=== PATIENT | female | born 1985 | race Caucasian/White ===

== ENCOUNTER 2019-07-26 06:44 | Inpatient (IN) | payer MEDICAID, SELFPAY ==
[2019-07-26] MEDS ORDERED: Ondansetron PF 4 MG/2 ML Vial ONE ×2 (06:51→07:43)
[2019-07-26 07:27] LABS: BHCG - Serum Negative (NEGATIVE); Pregs Control Background? CLEAR/WHITE (CLR/WHITE); Pregs Control Bar Appear? YES (CONTROL BAR)
[2019-07-26 07:36] LABS: #Basophils 0.1 thou/uL (0.0-0.2); #Lymphocytes 0.8 thou/uL (1.20-3.40); #Monocytes 0.5 thou/uL (0.11-0.59); #Neutrophils 4.6 thou/uL (1.40-6.50); %Eosinophils 0.1 % (0.0-10.0); %Lymphocytes 13.2 % (21.0-51.0); %Monocytes 8.3 % (0.0-10.0); %Neutrophils 77.4 % (42.0-75.0); Anisocytosis SLIGHT = 6-15 cells (100X) (0-5/hpf); Hemoglobin 13.8 g/dL (12.0-16.0); MDiff Complete? YES; Macrocytosis SLIGHT = 6-15 cells (100X) (0-5/hpf); Mean Corpuscular HGB CONC 34.4 g/dL (32.0-36.0); Mean Corpuscular Hemoglobin 35.9 pg (27.0-31.0); Mean Platelet Volume 7.7 fL (7.4-10.4); Platelet Count 141 thou/uL (130-400); Platelet Morphology Comment Appears Adequate; RBC Distribution Width 12.1 % (11.5-14.5); Red Blood Cell (RBC) Count 3.84 mill/uL (4.20-5.40); White Blood Cell (WBC) Count 5.9 thou/uL (4.8-10.8)
[2019-07-26 07:38] LABS: ALT (SGPT) 101 U/L (8-55); AST (SGOT) 253 U/L (5-34); Acetaminophen Less than 6.0 mcg/mL (10.0-30.0); Albumin 3.9 g/dL (3.5-5.0); Alcohol Less than 10 mg/dL (Less than 10); Alkaline Phosphatase 140 U/L (40-110); Anion Gap 28 mmol/L (10-20); BUN (Urea Nitrogen) 5 mg/dL (7.0-18.7); Bilirubin, Total 2.3 mg/dL (0.2-1.2); CK (CPK) 79 U/L (29-168); Calc. Creatinine Clearance 0 mL/min (70-130); Calcium 8.4 mg/dL (7.8-10.44); Carbon Dioxide 17 mmol/L (22-29); Chloride 97 mmol/L (98-107); Estimated GFR-MDRD 88; Globulin 4.6 g/dL (2.4-3.5); Glucose 95 mg/dL (70-105); Lipase 30 U/L (8-78); Potassium 3.2 mmol/L (3.5-5.1); Protein, Total 8.5 g/dL (6.0-8.3); Salicylate Less than 8.0 mg/dL (15.0-30.0); Sodium 139 mmol/L (136-145)
[2019-07-26] MEDS ORDERED: Thiamine HCl 200 MG/2 ML VIAL ONE ×2 (07:38→07:42)
[2019-07-26] MEDS ORDERED: Multivit, Adult Inj 10 ML VIAL ONE (07:38)
[2019-07-26] MEDS ORDERED: 1/2 NS w/KCL 20 mEq 1,000 ML ONE (08:12)
[2019-07-26 08:16] LABS: Base Excess-Venous -6.6 mmol/L (-2.0 to 3.0); Bicarbonate (HCO3v) 17.4 mmol/L (22.0-28.0); CO2 Tension (PvCO2) 29.7 mmHg (40.0-50.0); Calcium, Ionized 0.86 mmol/L (See Comments:); Chloride 107 mmol/L (98-107); Hemoglobin - Calc 13.5 g/dL (12.0-16.0); Potassium 2.5 mmol/L (3.5-5.1); Sodium 139 mmol/L (138-145); T. Carbon Dioxide 18.3 mmol/L (22.0-28.0); vO2 Saturation-calc 82.8 % (60.0-85.0)
[2019-07-26 08:16] LABS: Phosphorus 2.9 mg/dL (2.3-4.7)
--- NOTE | 2019-07-26 08:55 | ULT ---
RIGHT UPPER QUADRANT ULTRASOUND CLINICAL HISTORY: Right upper quadrant pain and abnormal LFTs. COMPARISON: None FINDINGS: Liver:There is diffuse fatty liver. The liver measures greater than 4 cm in length. Bile ducts: No intrahepatic or extrahepatic biliary dilation.; common bile duct: 0.14cm. Gallbladder: Normal appearing. Singleton's sign:None Main portal vein:Patent with hepatopedal flow. Pancreas: Visualized pancreas appears normal. Right kidney: There is mild right hydronephrosis. There is a 1.4 x 2.1 cm hypoechoic lesion involving the posterior aspect of the right mid kidney. Right kidney measures 13.6 x 4.9 x 4.8 cm. cm.Renal cortical thickness is 1.5 cm. Additional findings: None. IMPRESSION: 1. Diffuse fatty infiltration with hepatomegaly. 2. Mild right hydronephrosis. 3. Right renal hypoechoic lesion. 4. Recommendation: Recommend CT of the abdomen and pelvis utilizing a CT urogram protocol for further investigation the right hydronephrosis and right renal lesion
[2019-07-26 09:27] LABS: Bilirubin Negative (Negative); Blood, Urine Negative (Negative); Clarity Slightly Cloudy (Clear); Glucose, Urine (Dipstick) Negative (Negative); Leukocyte Negative (Negative); Nitrite Positive (Negative); Protein, Urine (Dipstick) Negative (Neg-Trace)
[2019-07-26 09:29] LABS: Bacteria/HPF 3+ HPF (None Seen); RBC/HPF 0-3 HPF (0-3); Squamous Epithelial 0-3 HPF (0-3); WBC/HPF 0-3 HPF (0-3)
[2019-07-26 09:31] LABS: Amphetamine Not Detected (NotDetected); Barbiturates Screen Not Detected (NotDetected); Benzodiazepine Screen Not Detected (NotDetected); Cocaine Metabolite Screen Not Detected (NotDetected); Medtox Control Line Valid? VALID (VALID); Methadone Not Detected (NotDetected); Methamphetamine Not Detected (NotDetected); Opiate Screen Not Detected (NotDetected); Oxycodone Screen Not Detected (NotDetected); Phencyclidine (PCP) Not Detected (NotDetected); THC/Cannabinoid Screen Not Detected (NotDetected); Tricyclic Screen Not Detected (NotDetected)
[2019-07-26] MEDS ORDERED: cefTRIAXone\\ROCEPHIN 1 GM VIAL ONE (09:46)
[2019-07-26] MEDS ORDERED: Sodium Chloride 0.9% 100 ML ONE (09:46)
[2019-07-26 10:09] LABS: Lactic Acid 3.5 mmol/L (0.5-2.2)
--- NOTE | 2019-07-26 10:15 | CT ---
CT abdomen and pelvis noncontrast HISTORY: Hydronephrosis. Renal mass. FINDINGS: Each renal collecting system, ureter, and urinary bladder are decompressed. Prominence of e ach renal pelvis has the appearance of partial extrarenal pelves. No celio hydronephrosis. A 0.3 cm calculus within a nondilated calyx of the right kidney. Tiny calcification at the inferior p ole. There is a 0.2 cm calculus within a nondilated calyx at phleboliths within the pelvis. Lack of contrast limits evaluation for other abnormalities. Liver is diffusely hypodense. There is a small very subtle low density lesion at the medial cortex inferior pole right kidney. It i s smaller than expected for the sonographic abnormality on the exam earlier on the same date. It cannot be definitely characterized as cystic without contrast. IMPRESSION: Tiny nonobstructing bilateral renal calculi. No hydronephrosis. The hypoechoic mass of the right kidney from recent sonogram not well visualized or evaluated without contrast. Please consider contrast-enhanced CT kidneys with multi phase imaging for appropriate characterization. Hepatic steatosis.
[2019-07-26 10:39] VITALS: BMI 23.2
[2019-07-26] MEDS ORDERED: D5 1/2 NS w/20 mEq KCL 1,000 ML IV SCH (10:45)
[2019-07-26] MEDS ORDERED: Senokot S 8.6-50 MG TAB PO PRN (10:48)
[2019-07-26] MEDS ORDERED: Guaifenesin DM 100-10/5 ML UDCUP PO PRN (10:48)
[2019-07-26] MEDS ORDERED: Bisacodyl 10 MG SUPP PR PRN (10:48)
[2019-07-26] MEDS ORDERED: Promethazine HCl 12.5 MG in Sodium Chloride 0.9% 50 ML IVPB PRN (10:48)
[2019-07-26] MEDS ORDERED: Potassium Chloride 20 MEQ in Premix Bag 1 BAG IVPB SCH (11:00)
[2019-07-26] MEDS: Ondansetron PF 4 MG/2 ML Vial IVP PRN ×2 (11:43→23:23)
[2019-07-26] MEDS ORDERED: Ondansetron PF 4 MG/2 ML Vial IVP PRN (13:45)
[2019-07-26] MEDS ORDERED: Ondansetron ODT 8 MG TAB SL PRN (13:45)
[2019-07-26] MEDS: Multivitamins, Adult 10 ML, Folic Acid 1 MG, Thiamine HCl 100 MG in Dextrose 5 %-0.45 %... IV SCH (13:52)
[2019-07-26] MEDS: chlordiazePOXIDE HCl 25 MG CAP PO PRN ×2 (13:56→21:01)
--- NOTE | 2019-07-26 14:03 | HP ---
REASON FOR ADMISSION: Alcohol abuse/withdrawal, multiple electrolyte abnormalities, possible alcoholic hepatitis, severe dehydration, urinary tract infection. HISTORY OF PRESENTING ILLNESS: The patient gives history of having severe nausea and vomiting from last 3 days. She has not slept for the last 2 days due to intractable nausea. She admits to using alcohol at least six shots a day mixed drinks from the last 1 year or so now. She developed muscle aches and was unable to ambulate or move her extremities due to severe aches and pains. The patient finally made it to [place] emergency room from where she was transferred here. No history of hepatitis. Has had urinary frequency and urgency 2 days back, but none at present. PAST MEDICAL AND SURGICAL HISTORY: History of migraine, x3. CURRENT MEDICATIONS: None. ALLERGIES: NO KNOWN DRUG ALLERGIES. PERSONAL HISTORY: Drinks a total of six mixed drinks with orange juice daily. Denies substance use or smoking. FAMILY HISTORY: Mother at the age of 64 years. She has had history of CKD stage 5. Father is alive, has history of diabetes. The patient has a 3-year-old daughter with her and has two other kids who are with the kid's dad. She moved from [facility]. CODE STATUS: Full. Power of assistant city attorney is her boyfriend Mr. Hernandez. Number to reach him is [phone]. REVIEW OF SYSTEMS: CONSTITUTIONAL: Negative for weight loss or gain, ability to conduct usual activities. SKIN: Negative for rash, itching. EYES: Negative for double vision, pain. ENT/MOUTH: Negative for nose bleeding, neck stiffness, pain, tenderness. CARDIOVASCULAR: Negative for palpitations, dyspnea on exertion, orthopnea. RESPIRATORY: Negative for shortness of breath, wheezing, cough, hemoptysis, fever or night sweats. GASTROINTESTINAL: Negative for poor appetite, abdominal pain, heartburn, nausea, vomiting, constipation, or diarrhea. GENITOURINARY: Negative for urgency, frequency, dysuria, nocturia. MUSCULOSKELETAL: Negative for pain, swelling. NEUROLOGIC/PSYCHIATRIC: Negative for anxiety, depression. ALLERGY/IMMUNOLOGIC: Negative for skin rash, bleeding tendency. PHYSICAL EXAMINATION: GENERAL: The patient is a 34-year-old female who is currently not in any acute distress. VITAL SIGNS: Blood pressure 130/90, pulse 116 per minute, respiratory rate 18 per minute, temperature 98.4 degrees Fahrenheit, saturating 98% on room air. NECK: Supple. No elevated JVD. HEENT: Eyes; extraocular muscles intact. Pupils reacting to light. Oral cavity, mucous membranes are dry. No exudates or congestion. CARDIOVASCULAR: S1 and S2 heard. Tachycardic. No murmur. RESPIRATORY: Air entry 1+ bilateral. No rales or rhonchi. ABDOMEN: Soft. Bowel sounds heard. No tenderness, rigidity or guarding. EXTREMITIES: No peripheral edema or calf tenderness. VASCULAR: Peripheral pulses 1+ bilateral. No ischemic ulcerations or gangrene. CENTRAL NERVOUS SYSTEM: No gross focal deficits noted. The patient is alert, awake, and oriented well. PSYCHIATRIC: The patient's mood is a bit anxious, otherwise no hallucinations or delusions. LABORATORY DATA: Right upper quadrant ultrasound done shows diffuse fatty infiltration with hepatomegaly and mild right hydronephrosis was seen. Right renal hypoechoic lesion. CT stone protocol done shows tiny nonobstructing bilateral renal calculi and no hydronephrosis. Hepatic steatosis was seen. Urine drug screen is negative. Plasma alcohol less than 10. Beta hydroxybutyrate is 0.51. UA shows positive nitrite with 3+ bacteria. Serum test is negative. Initial lactic acid was 9.7, magnesium 0.8. Total bilirubin 2.3, AST 253, ALT 101, alkaline phosphatase 140, albumin is 3.9, lipase is 30, potassium 2.5, serum bicarb 17, BUN 5, creatinine 0.7, serum glucose 95. White count of 5.9, H and H 13 and 40, platelet count is 141, MCV is 104 with 77% neutrophils. EKG done shows normal sinus rhythm at 99 beats per minute. CLINICAL IMPRESSION AND PLAN: The patient will be admitted to medical floor for alcohol abuse with withdrawal syndrome, multiple electrolyte abnormalities with intractable nausea and vomiting, [id number] dehydration, urinary tract infection. The blood and urine cultures have been obtained in the emergency room. She will be on banana bag at 100 mL per hour. We will follow [facility] alcohol withdrawal protocol. Ciprofloxacin 400 mg IV q.12 for UTI. Librium p.r.n. three times daily for withdrawal syndrome. Phenergan and Zofran p.r.n. We will obtain a hepatitis panel and lipid profile in the morning. We will continue to closely monitor her on medical floor. Job ID: [id number]
[2019-07-26 15:18] LABS: HBCM Index 0.15 S/CO (0-0.79); Hep A IgM AB Non-Reactive (NonReactive); Hep A IgM S/CO 0.12 S/CO (0-0.79); Hep B Surf Ag Non-Reactive S/CO (NonReactive); Hep C IgG Ab Non-Reactive (NonReactive); Hepatitis B Core IgM Abs Non-Reactive (NonReactive)
[2019-07-26] MEDS: Acetaminophen 325 MG TAB PO PRN ×2 (17:30→21:01)
[2019-07-26] MEDS: Famotidine 20 MG TAB PO SCH (21:00)
[2019-07-27] MEDS: chlordiazePOXIDE HCl 25 MG CAP PO PRN ×2 (03:13→20:01)
[2019-07-27 06:29] LABS: ALT (SGPT) 64 U/L (8-55); AST (SGOT) 141 U/L (5-34); Albumin 3.1 g/dL (3.5-5.0); Alkaline Phosphatase 93 U/L (40-110); Anion Gap 11 mmol/L (10-20); BUN (Urea Nitrogen) Less than 4 mg/dL (7.0-18.7); Bilirubin, Total 1.5 mg/dL (0.2-1.2); Calc. Creatinine Clearance 113 mL/min (70-130); Calcium 7.4 mg/dL (7.8-10.44); Carbon Dioxide 24 mmol/L (22-29); Cardiac Risk 2.2 (Less than 4.5); Chloride 108 mmol/L (98-107); Cholesterol 155 mg/dl (< 200 Desired); Estimated GFR-MDRD Greater than 90; Globulin 3.4 g/dL (2.4-3.5); Glucose 63 mg/dL (70-105); HDL Cholesterol 71 mg/dL (>60 Neg Risk); LDL Cholesterol, Calculated 75 mg/dL; Protein, Total 6.5 g/dL (6.0-8.3); Sodium 140 mmol/L (136-145); Triglycerides 46 mg/dL (Less than 150)
[2019-07-27 06:34] LABS: #Lymphocytes 1.1 thou/uL (1.20-3.40); #Monocytes 0.3 thou/uL (0.11-0.59); #Neutrophils 1.7 thou/uL (1.40-6.50); %Basophils 0.9 % (0.0-1.0); %Eosinophils 1.5 % (0.0-10.0); %Lymphocytes 36.3 % (21.0-51.0); %Monocytes 8.4 % (0.0-10.0); %Neutrophils 52.9 % (42.0-75.0); Hemoglobin 11.9 g/dL (12.0-16.0); Mean Platelet Volume 8.1 fL (7.4-10.4); Platelet Count 108 thou/uL (130-400); Platelet Morphology Comment Appears Decreased; RBC Distribution Width 11.8 % (11.5-14.5); Red Blood Cell (RBC) Count 3.21 mill/uL (4.20-5.40); White Blood Cell (WBC) Count 3.1 thou/uL (4.8-10.8)
[2019-07-27 06:36] LABS: Potassium 2.9 mmol/L (3.5-5.1)
[2019-07-27] MEDS: Enoxaparin Sodium 40 MG/0.4 ML SYRINGE SC SCH (08:28)
[2019-07-27] MEDS: Folic Acid 1 MG TAB PO SCH (08:28)
[2019-07-27] MEDS: Famotidine 20 MG TAB PO SCH ×2 (08:28→19:59)
[2019-07-27] MEDS: Thiamine 100 MG TAB PO SCH (08:28)
[2019-07-27] MEDS: Potassium Chloride 20 MEQ TAB PO SCH ×2 (11:05→17:28)
--- NOTE | 2019-07-27 15:10 | PDOC.HOSPP ---
- Subjective Encounter Date: 07/27/19 Encounter Time: 13:00 Subjective: no sob or shaking feels better muscle pains have gone now - Objective Vital Signs & Weight: Vital Signs (12 hours) Temp Pulse Resp BP BP Pulse Ox 07/27/19 12:32 98.1 F 65 16 120/83 100 07/27/19 08:00 98.3 F 73 16 114/76 100 07/27/19 04:00 98.1 F 69 18 109/73 109/73 99 Weight Admit Weight 127 lb Weight 127 lb I&O: 07/26/19 07/27/19 07/28/19 06:59 06:59 06:59 Intake Total 1783 660 Balance 1783 660 Result Diagrams: 07/27/19 05:37 07/27/19 05:37 Hospitalist ROS - Medication Medications: Active Medications Generic Name Dose Route Start Last Admin Trade Name Freq PRN Reason Stop Dose Admin Acetaminophen 650 mg 07/26/19 10:48 07/26/19 21:01 Tylenol PO 650 mg Q4H PRN Administration Headache/Fever/Mild Pain (1-3) Chlordiazepoxide HCl 25 mg 07/26/19 10:51 07/27/19 03:13 Librium PO 25 mg TIDPRN PRN Administration Alcohol Withdrawal Enoxaparin Sodium 40 mg 07/27/19 09:00 07/27/19 08:28 Lovenox SC 40 mg 0900 ELKIN Administration Famotidine 20 mg 07/26/19 21:00 07/27/19 08:28 Pepcid PO 20 mg BID ELKIN Administration Folic Acid 1 mg 07/27/19 09:00 07/27/19 08:28 Folvite PO 1 mg DAILY ELKIN Administration Multivitamins 10 ml/ Folic 1,011.2 mls @ 80 mls/hr 07/26/19 14:00 07/26/19 13 :52 Acid 1 mg/ Thiamine HCl 100 mg IV 1,011.2 mls / Dextrose/Sodium Chloride Q24HR ELKIN Administration Ciprofloxacin/Dextrose 400 mg/ 200 mls @ 200 mls/hr 07/26/19 11:00 07/27/19 11:07 Device IVPB 200 mls 1100,2300 ELKIN Administration Ondansetron HCl 4 mg 07/26/19 10:48 07/26/19 23:23 Zofran IVP 4 mg Q6H PRN Administration Nausea/Vomiting Potassium Chloride 40 meq 07/27/19 12:00 07/27/19 11:05 K-Dur PO 07/28/19 18:01 40 meq Q6HR ELKIN Administration Thiamine HCl 100 mg 07/27/19 09:00 07/27/19 08:28 Thiamine PO 100 mg DAILY ELKIN Administration - Exam General Appearance: NAD, awake alert Eye: PERRL, anicteric sclera ENT: no oropharyngeal lesions, moist mucosa Neck: supple, no JVD Heart: RRR, no murmur Respiratory: no wheezes, no rales Gastrointestinal: soft, non-tender, non-distended, normal bowel sounds Extremities: no cyanosis, no edema Neurological: cranial nerve grossly intact, no focal deficits Psychiatric: normal affect, A&O x 3 Hosp A/P (1) Alcohol abuse Code(s): F10.10 - ALCOHOL ABUSE, UNCOMPLICATED Status: Chronic (2) Alcohol withdrawal Code(s): F10.239 - ALCOHOL DEPENDENCE WITH WITHDRAWAL, UNSPECIFIED Status: Acute (3) Hypokalemia Code(s): E87.6 - HYPOKALEMIA Status: Acute (4) Alcoholic hepatitis Code(s): K70.10 - ALCOHOLIC HEPATITIS WITHOUT ASCITES Status: Acute Qualifiers: Ascites presence: without ascites Qualified Code(s): K70.10 - Alcoholic hepatitis without ascites - Plan electrolytes are being replaced nausea/vomiting has resolved now, oral solid diet thiamine, folic acid, librium, ASE protocol dc plan in am if stable ac hepatitis panel is -ve
[2019-07-27] MEDS: Multivitamins, Adult 10 ML, Folic Acid 1 MG, Thiamine HCl 100 MG in Dextrose 5 %-0.45 %... IV SCH (16:16)
[2019-07-28] MEDS: Potassium Chloride 20 MEQ TAB PO SCH ×2 (00:06→04:53)
[2019-07-28] MEDS: chlordiazePOXIDE HCl 25 MG CAP PO PRN ×2 (01:44→10:45)
[2019-07-28 07:03] LABS: ALT (SGPT) 58 U/L (8-55); AST (SGOT) 120 U/L (5-34); Albumin 3.2 g/dL (3.5-5.0); Alkaline Phosphatase 101 U/L (40-110); Anion Gap 8 mmol/L (10-20); BUN (Urea Nitrogen) Less than 4 mg/dL (7.0-18.7); Bilirubin, Total 1.2 mg/dL (0.2-1.2); Calc. Creatinine Clearance 113 mL/min (70-130); Calcium 7.9 mg/dL (7.8-10.44); Carbon Dioxide 25 mmol/L (22-29); Chloride 111 mmol/L (98-107); Estimated GFR-MDRD Greater than 90; Globulin 3.2 g/dL (2.4-3.5); Glucose 87 mg/dL (70-105); Potassium 4.2 mmol/L (3.5-5.1); Protein, Total 6.4 g/dL (6.0-8.3); Sodium 140 mmol/L (136-145)
[2019-07-28] MEDS: Enoxaparin Sodium 40 MG/0.4 ML SYRINGE SC SCH (08:06)
[2019-07-28] MEDS: Famotidine 20 MG TAB PO SCH (08:15)
[2019-07-28] MEDS: Folic Acid 1 MG TAB PO SCH (08:16)
[2019-07-28] MEDS: Thiamine 100 MG TAB PO SCH (08:17)
[2019-07-28 11:40] VITALS: BP 109/73; TEMP 98.2
--- NOTE | 2019-07-28 17:56 | DIS ---
DATE OF ADMISSION: 07/26/2019 DATE OF DISCHARGE: 07/28/2019 DISCHARGE DISPOSITION: To home. PRIMARY DISCHARGE DIAGNOSES: Alcohol abuse with withdrawal; alcoholic hepatitis; hypokalemia, resolved; intractable nausea and vomiting, resolved. PROCEDURES DONE DURING HOSPITALIZATION: CT of the abdomen and pelvis noncontrast showed tiny nonobstructing bilateral renal calculi. No hydronephrosis. Hepatic steatosis. Right upper quadrant ultrasound done showed diffuse fatty infiltration with hepatomegaly. Urine culture grew E coli sensitive to quinolones. Blood cultures x2, no growth. H and H 12 and 34, platelet count 108, MCV is 106. Discharge potassium 4.2. Total bilirubin 2.3 on admission, 1.2 on discharge. AST 253 on admission, discharge number is 120. ALT admission number was 101 with discharge number of 58. Albumin is 3.2. Total cholesterol 155, triglycerides 46, LDL 75, HDL 71. Serum test was negative. Lipase 30. UA was positive for nitrite and 3+ bacteria. Urine drug screen negative. Plasma alcohol less than 10. Acute hepatitis panel was negative. DISCHARGE MEDICATIONS: 1. Librium 25 mg p.o. twice daily for 4 days, then daily for 4 days, and to discontinue. 2. Ciprofloxacin 500 mg p.o. twice daily for 4 days. 3. Folic acid 1 mg p.o. daily. 4. Thiamine 100 mg p.o. daily. ALLERGIES: NO KNOWN DRUG ALLERGIES. DISCHARGE PLAN: The patient to find a primary care physician in the area and follow up in 1 week. BRIEF COURSE DURING HOSPITALIZATION: The patient initially came in with complaints of severe nausea and vomiting for last 3 days and unable to eat or drink. Her initial labs were consistent with alcoholic hepatitis with the patient's history of alcohol abuse and having withdrawal symptoms on arrival. She was placed on [facility] protocol. She was gently hydrated initial 24 hours, and the patient was weaned into liquid, then solid food prior to discharge. She also was found to have had urinary tract infection and needs to continue ciprofloxacin for another 4 days. She is given prescriptions for Librium. She was counseled with regard to alcohol use. She is not supposed to drive or operate heavy missionary while on the Librium. The patient clearly understands this. Please note, I have seen and examined the patient on the day of discharge. Job ID: [id number]
== END 2019-07-28 12:21 | disposition home or self-care (01) | DRG 897 ==
LOC: SCSER 06:44 → T4-B 08:40
PROVIDERS: ADMIT Internal Medicine; ATTEND Internal Medicine
PROC: HZ2ZZZZ Detoxification Services for Substance Abuse Treatment (ICD-10-PCS; principal; 2019-07-26)
PROC: 3E0234Z Introduction of Serum, Toxoid and Vaccine into Muscle, Percutaneous Approach (ICD-10-PCS; 2019-07-26)
DX: F10.239 Alcohol dependence with withdrawal, unspecified (principal); N39.0 Urinary tract infection, site not specified; F10.288 Alcohol dependence with other alcohol-induced disorder; E86.0 Dehydration; E87.6 Hypokalemia; G43.909 Migraine, unspecified, not intractable, without status migrainosus; K70.10 Alcoholic hepatitis without ascites; B96.20 Unspecified Escherichia coli [E. coli] as the cause of diseases classified elsewhere; Y90.0 Blood alcohol level of less than 20 mg/100 ml; Z23 Encounter for immunization
CPT/HCPCS: 36415; 74176; 76705; 80053; 80061; 80074; 80306; 80307; 81003; 81015; 82010; 82330; 82550; 82803; 83605; 83690; 83735; 84100; 84703; 85025; 87040; 87077; 87086; 87186; 93005; 96361; 96365; 96366; 96368; 96375; J0696; J0744; J1650; J2405; J3411; J3480; J3490; J7042

== ENCOUNTER 2020-01-04 14:13 | Emergency (ER) | payer MEDICAID, OTHER ==
[2020-01-04 15:31] LABS: #Lymphocytes 0.7 thou/uL (1.20-3.40); #Monocytes 0.3 thou/uL (0.11-0.59); #Neutrophils 3.9 thou/uL (1.40-6.50); %Basophils 0.4 % (0.0-1.0); %Eosinophils 0.2 % (0.0-10.0); %Lymphocytes 14.7 % (21.0-51.0); %Monocytes 6.7 % (0.0-10.0); %Neutrophils 78.1 % (42.0-75.0); Hemoglobin 14.9 g/dL (12.0-16.0); Mean Corpuscular HGB CONC 36.3 g/dL (32.0-36.0); Mean Corpuscular Hemoglobin 38.1 pg (27.0-31.0); Mean Platelet Volume 8.1 fL (7.4-10.4); Platelet Count 87 thou/uL (130-400); RBC Distribution Width 11.5 % (11.5-14.5); Red Blood Cell (RBC) Count 3.91 mill/uL (4.20-5.40)
[2020-01-04 15:48] LABS: ALT (SGPT) 54 U/L (8-55); AST (SGOT) 194 U/L (5-34); Albumin 4.6 g/dL (3.5-5.0); Alkaline Phosphatase 132 U/L (40-110); Anion Gap 16 mmol/L (10-20); BUN (Urea Nitrogen) 4 mg/dL (7.0-18.7); Bilirubin, Total 2.6 mg/dL (0.2-1.2); Calc. Creatinine Clearance 0 mL/min (70-130); Calcium 9.4 mg/dL (7.8-10.44); Carbon Dioxide 28 mmol/L (22-29); Chloride 97 mmol/L (98-107); Estimated GFR-MDRD 83; Glucose 121 mg/dL (70-105); Lipase 48 U/L (8-78); Potassium 3.4 mmol/L (3.5-5.1); Protein, Total 8.6 g/dL (6.0-8.3); Sodium 138 mmol/L (136-145)
[2020-01-04 15:51] LABS: Platelet Morphology Comment Appears Decreased; RBC Morphology Normal
[2020-01-04 15:58] LABS: Bacteria/HPF 4+ HPF (None Seen); Bilirubin 1+ (Negative); Blood, Urine Negative (Negative); Clarity Turbid (Clear); Glucose, Urine (Dipstick) 30 mg/dL (Negative); Leukocyte 75 Leu/uL (Negative); Nitrite 2+ (Negative); Protein, Urine (Dipstick) 300 mg/dL (Neg-Trace); Urobilinogen Greater than 12 mg/dL (Less than 2); WBC/HPF 21-50 HPF (0-3)
[2020-01-04 16:02] LABS: Pregnancy Test - Urine (BHCG) Negative (Negative); Pregu Control Background? CLEAR/WHITE (CLR/WHITE); Pregu Control Bar Appear? YES (CONTROL BAR); Specific Gravity 1.026 (1.002-1.036)
[2020-01-04 18:51] LABS: Acetaminophen Less than 6.0 mcg/mL (10.0-30.0); Alcohol Less than 10 mg/dL (Less than 10); CK (CPK) 148 U/L (29-168); Salicylate Less than 8.0 mg/dL (15.0-30.0)
[2020-01-04] MEDS ORDERED: Ondansetron PF 4 MG/2 ML Vial ONE (20:05)
== END 2020-01-04 21:33 | disposition home or self-care (01) ==
LOC: ERS 14:13
DX: R11.2 Nausea with vomiting, unspecified (principal); G43.909 Migraine, unspecified, not intractable, without status migrainosus; F31.9 Bipolar disorder, unspecified; F41.9 Anxiety disorder, unspecified; Z87.891 Personal history of nicotine dependence
CPT/HCPCS: 36415; 80053; 80307; 81003; 81015; 81025; 82550; 83690; 85025; 96361; 96374; J2405

== ENCOUNTER 2020-06-02 04:27 | Emergency (ER) | payer MEDICAID, OTHER ==
[2020-06-02] MEDS ORDERED: Ondansetron PF 4 MG/2 ML Vial ONE (04:58)
[2020-06-02] MEDS ORDERED: Lorazepam 2 MG/ML VIAL ONE (04:58)
[2020-06-02 05:17] LABS: BHCG - Serum Negative (NEGATIVE); Pregs Control Background? CLEAR/WHITE (CLR/WHITE); Pregs Control Bar Appear? YES (CONTROL BAR)
[2020-06-02 05:34] LABS: ALT (SGPT) 100 U/L (8-55); AST (SGOT) 389 U/L (5-34); Albumin 4.4 g/dL (3.5-5.0); Alcohol Less than 10 mg/dL (Less than 10); Alkaline Phosphatase 173 U/L (40-110); Anion Gap 15 mmol/L (10-20); BUN (Urea Nitrogen) 7 mg/dL (7.0-18.7); Bilirubin, Total 2.5 mg/dL (0.2-1.2); Calc. Creatinine Clearance 0 mL/min (70-130); Calcium 9.7 mg/dL (7.8-10.44); Carbon Dioxide 28 mmol/L (22-29); Chloride 97 mmol/L (98-107); Estimated GFR-MDRD 56; Globulin 4.6 g/dL (2.4-3.5); Glucose 112 mg/dL (70-105); Sodium 137 mmol/L (136-145)
[2020-06-02 05:56] LABS: #Lymphocytes 0.9 thou/uL (1.20-3.40); #Monocytes 0.4 thou/uL (0.11-0.59); #Neutrophils 3.5 thou/uL (1.40-6.50); %Eosinophils 0.8 % (0.0-10.0); %Lymphocytes 18.5 % (21.0-51.0); %Monocytes 7.4 % (0.0-10.0); %Neutrophils 72.3 % (42.0-75.0); Hemoglobin 13.3 g/dL (12.0-16.0); Mean Corpuscular HGB CONC 33.9 g/dL (32.0-36.0); Mean Corpuscular Hemoglobin 35.3 pg (27.0-31.0); Mean Platelet Volume 8.7 fL (7.4-10.4); Platelet Count 100 thou/uL (130-400); Platelet Morphology Comment Appears Decreased; RBC Distribution Width 10.9 % (11.5-14.5); Red Blood Cell (RBC) Count 3.77 mill/uL (4.20-5.40); White Blood Cell (WBC) Count 4.8 thou/uL (4.8-10.8)
== END 2020-06-02 07:28 | disposition home or self-care (01) ==
LOC: ERS 04:27
DX: F10.239 Alcohol dependence with withdrawal, unspecified (principal); G43.909 Migraine, unspecified, not intractable, without status migrainosus; F41.9 Anxiety disorder, unspecified; F31.9 Bipolar disorder, unspecified; Z87.891 Personal history of nicotine dependence
CPT/HCPCS: 36415; 36416; 80053; 80307; 84703; 85025; 96361; 96374; 96375; J2060; J2405